=== PATIENT | male | born 1990 | race American Indian/Alaskan Native ===

== ENCOUNTER 2020-02-05 20:24 | Emergency (ER) | payer MEDICAID ==
[~2020-02-05] VITALS: Ht 182.9 cm; Wt 86.4 kg
[~2020-02-05 20:24] MED LIST: BECL8.7A3 IH; CYCL-1 PO; DIAZ5TAB PO; HYDR-4383 PO; IBUP-1985 PO
[2020-02-05 20:49] VITALS: BP 113/72
[2020-02-05] MEDS ORDERED: AZIT250T81 PO (21:12)
[2020-02-05] MEDS ORDERED: PRED20TA PO (21:12)
== END 2020-02-05 21:26 | disposition home or self-care (01) ==
LOC: ER 20:25
DX: J01.00 Acute maxillary sinusitis, unspecified (principal); G89.29 Other chronic pain; J45.909 Unspecified asthma, uncomplicated; Z87.891 Personal history of nicotine dependence; Z56.0 Unemployment, unspecified; Z79.899 Other long term (current) drug therapy
CPT/HCPCS: 99283

== ENCOUNTER 2020-03-27 02:09 | Emergency (ER) | payer MEDICAID ==
[~2020-03-27] VITALS: Ht 182.9 cm; Wt 79.5 kg
[2020-03-27 02:31] VITALS: BP 119/75
== END 2020-03-27 02:33 | disposition home or self-care (01) ==
LOC: ER 02:10
DX: J20.9 Acute bronchitis, unspecified (principal); R07.89 Other chest pain; J45.909 Unspecified asthma, uncomplicated; G89.29 Other chronic pain; F41.9 Anxiety disorder, unspecified; F31.9 Bipolar disorder, unspecified; F17.200 Nicotine dependence, unspecified, uncomplicated; Z72.89 Other problems related to lifestyle; Z56.0 Unemployment, unspecified; Z79.899 Other long term (current) drug therapy
CPT/HCPCS: 93005; 99283

== ENCOUNTER 2020-08-08 22:12 | Emergency (ER) | payer MEDICAID ==
[~2020-08-08] VITALS: Ht 182.9 cm; Wt 79.5 kg
[2020-08-08] MEDS ORDERED: albuterol 2.5 MG/3 ML nebule NEB ONE (22:45)
--- NOTE | 2020-08-08 23:03 | NUR ---
RESP AT BEDSIDE FOR ALBUTERAL TX
[2020-08-08] MEDS ORDERED: ALBU8HFA PO (23:13)
[2020-08-08] MEDS ORDERED: PRED50TA PO (23:13)
[2020-08-09 01:17] VITALS: BP 117/70
== END 2020-08-08 23:45 | disposition home or self-care (01) ==
LOC: ER 22:13
DX: J45.901 Unspecified asthma with (acute) exacerbation (principal); G89.29 Other chronic pain; F41.9 Anxiety disorder, unspecified; F31.9 Bipolar disorder, unspecified; F17.210 Nicotine dependence, cigarettes, uncomplicated; Z56.0 Unemployment, unspecified; Z79.899 Other long term (current) drug therapy
CPT/HCPCS: 71045; 94640; 94760; 99283; 99284

== ENCOUNTER 2020-08-15 21:56 | Emergency (ER) | payer MEDICAID ==
[~2020-08-15] VITALS: Ht 182.9 cm; Wt 79.5 kg
[~2020-08-15 21:56] MED LIST changes: +ALBU8HFA PO; +PRED50TA PO
[2020-08-15 23:11] VITALS: BP 108/68
== END 2020-08-15 23:13 | disposition home or self-care (01) ==
LOC: ER 21:56
DX: J06.9 Acute upper respiratory infection, unspecified (principal); R05 Cough; R11.10 Vomiting, unspecified; R19.7 Diarrhea, unspecified; J45.909 Unspecified asthma, uncomplicated; G89.29 Other chronic pain; F41.9 Anxiety disorder, unspecified; F31.9 Bipolar disorder, unspecified; F17.200 Nicotine dependence, unspecified, uncomplicated; Z72.89 Other problems related to lifestyle; Z56.0 Unemployment, unspecified; Z79.899 Other long term (current) drug therapy
CPT/HCPCS: 36415; 87635; 99283

== ENCOUNTER 2020-11-19 23:03 | Emergency (ER) | payer MEDICAID ==
[~2020-11-19] VITALS: Ht 182.9 cm; Wt 80.0 kg
[~2020-11-19 23:03] MED LIST changes: -ALBU8HFA PO
[2020-11-19 23:15] VITALS: BP 128/89
== END 2020-11-19 23:46 | disposition home or self-care (01) ==
LOC: ER 23:04
DX: R07.89 Other chest pain (principal); R06.02 Shortness of breath; R05 Cough; Z20.828 Contact with and (suspected) exposure to other viral communicable diseases; J45.909 Unspecified asthma, uncomplicated; G89.29 Other chronic pain; F41.9 Anxiety disorder, unspecified; F31.9 Bipolar disorder, unspecified; F17.200 Nicotine dependence, unspecified, uncomplicated; Z72.89 Other problems related to lifestyle; Z56.0 Unemployment, unspecified; Z79.899 Other long term (current) drug therapy
CPT/HCPCS: 36415; 87635; 99281; 99283

== ENCOUNTER 2021-03-20 03:43 | Emergency (ER) | payer MEDICAID ==
[~2021-03-20] VITALS: Ht 182.9 cm; Wt 77.3 kg
[2021-03-20 03:48] VITALS: BP 116/73
[2021-03-20] MEDS ORDERED: cyclobenzaprine 10mg tablet PO ONE (04:50)
[2021-03-20] MEDS ORDERED: oxyCODONE/APAP 10/325mg tablet PO ONE (04:50)
[2021-03-20] MEDS ORDERED: CYCL-1 PO (04:54)
== END 2021-03-20 05:38 | disposition home or self-care (01) ==
LOC: ER 03:44
DX: S39.012A Strain of muscle, fascia and tendon of lower back, initial encounter (principal); G89.29 Other chronic pain; J45.909 Unspecified asthma, uncomplicated; F41.9 Anxiety disorder, unspecified; F31.9 Bipolar disorder, unspecified; F17.200 Nicotine dependence, unspecified, uncomplicated; Z72.89 Other problems related to lifestyle; Z56.0 Unemployment, unspecified; Z79.899 Other long term (current) drug therapy; X58.XXXA Exposure to other specified factors, initial encounter; Y93.89 Activity, other specified; Y92.89 Other specified places as the place of occurrence of the external cause; Y99.8 Other external cause status
CPT/HCPCS: 99283

== ENCOUNTER 2021-04-24 05:37 | Emergency (ER) | payer MEDICAID ==
[~2021-04-24] VITALS: Ht 182.9 cm; Wt 77.2 kg
[2021-04-24 05:40] VITALS: BP 121/80
[2021-04-24] MEDS ORDERED: PANT-47 PO (06:26)
== END 2021-04-24 07:03 | disposition home or self-care (01) ==
LOC: ER 05:37
DX: R07.89 Other chest pain (principal); R55 Syncope and collapse; J45.909 Unspecified asthma, uncomplicated; K21.9 Gastro-esophageal reflux disease without esophagitis; G89.29 Other chronic pain; F41.9 Anxiety disorder, unspecified; F31.9 Bipolar disorder, unspecified; Z72.89 Other problems related to lifestyle; Z56.0 Unemployment, unspecified; Z79.899 Other long term (current) drug therapy
CPT/HCPCS: 93005; 99283

== ENCOUNTER 2021-06-13 21:23 | Emergency (ER) | payer MEDICAID ==
[~2021-06-13] VITALS: Ht 182.9 cm; Wt 77.3 kg
[~2021-06-13 21:23] MED LIST changes: +PANT-47 PO
[2021-06-13 21:27] VITALS: BP 121/86
[2021-06-13] MEDS ORDERED: normal saline 1000ML IV soln IVB ONE (21:30)
[2021-06-13] MEDS ORDERED: ketorolac trometh. 30mg/ml inj. IV ONE (21:35)
[2021-06-13 21:55] LABS: BASOPHILS % (AUTO) 0.4 % (0-1); EOSINOPHILS # (AUTO) 0.1 X10'3 (0-0.9); EOSINOPHILS % (AUTO) 0.8 % (0-6); HEMATOCRIT 42.9 % (42.0-52.0); HEMOGLOBIN 14.8 g/dl (14.0-17.9); LYMPHOCYTES # (AUTO) 3.4 X10'3 (1.1-4.8); LYMPHOCYTES % (AUTO) 41.7 % (21-51); MEAN CORPUSCULAR HEMOGLOBIN 31.6 PG (27.0-31.0); MEAN CORPUSCULAR HGB CONC 34.6 g/dL (33.0-36.5); MEAN CORPUSCULAR VOLUME 91.4 FL (78-98); MEAN PLATELET VOLUME 10.8 FL (7.4-10.4); MONOCYTES # (AUTO) 0.5 X10'3 (0-0.9); MONOCYTES % (AUTO) 6.5 % (2-12); NEUTROPHILS # (AUTO) 4.2 X10'3 (1.8-7.7); NEUTROPHILS % (AUTO) 50.6 % (42-75); PLATELET COUNT 199 X10'3 (140-440); RED BLOOD COUNT 4.69 X10'6 (4.70-6.10); RED CELL DISTRIBUTION WIDTH 12.8 % (11.5-14.5); WHITE BLOOD COUNT 8.3 X10'3 (4.5-11.0)
[2021-06-13 22:16] LABS: ALANINE AMINOTRANSFERASE 20 U/L (12-78); ALBUMIN 4.2 G/DL (3.4-5.0); ALBUMIN/GLOBULIN RATIO 1.3 (1.1-1.5); ALKALINE PHOSPHATASE 76 IU/L (46-116); ANION GAP 10 (8-16); ASPARTATE AMINO TRANSFERASE 12 U/L (10-37); BLOOD UREA NITROGEN 6 MG/DL (7-18); BUN/CREATININE RATIO 6.9 (5.4-32.0); CHLORIDE 106 MMOL/L (99-107); CREATININE 0.87 MG/DL (0.60-1.10); GLUCOSE 81 MG/DL (70-104); LIPASE 67 U/L (73-393); POTASSIUM 3.6 MMOL/L (3.5-5.1); SODIUM 144 MMOL/L (135-145); TOTAL CARBON DIOXIDE 27.8 MMOL/L (24-32); TOTAL PROTEIN 7.4 G/DL (6.4-8.2); eGFR > 90 ML/MIN
[2021-06-13 22:28] LABS: LARGE PLATELETS FEW
[2021-06-13] MEDS ORDERED: ONDA4TAB6 PO (23:35)
[2021-06-14 00:41] LABS: PLATELET ESTIMATE NORMAL
== END 2021-06-13 23:49 | disposition home or self-care (01) ==
LOC: ER 21:24
DX: K22.6 Gastro-esophageal laceration-hemorrhage syndrome (principal); Z20.822 Contact with and (suspected) exposure to COVID-19; R11.10 Vomiting, unspecified; R19.7 Diarrhea, unspecified; J02.9 Acute pharyngitis, unspecified; R05 Cough; R09.89 Other specified symptoms and signs involving the circulatory and respiratory systems; J45.909 Unspecified asthma, uncomplicated; K21.9 Gastro-esophageal reflux disease without esophagitis; G89.29 Other chronic pain; F41.9 Anxiety disorder, unspecified; F31.9 Bipolar disorder, unspecified; Z72.89 Other problems related to lifestyle; Z56.0 Unemployment, unspecified; Z79.899 Other long term (current) drug therapy
CPT/HCPCS: 36415; 71045; 80053; 83690; 85008; 85025; 87635; 96361; 96374; 99284; C9803; J1885; J7030

== ENCOUNTER 2021-06-21 04:08 | Emergency (ER) | payer MEDICAID ==
[~2021-06-21] VITALS: Ht 182.9 cm; Wt 68.3 kg
[~2021-06-21 04:08] MED LIST changes: +ONDA4TAB6 PO
[2021-06-21 04:12] VITALS: BP 111/74
[2021-06-21] MEDS ORDERED: ketorolac trometh. 30mg/ml inj. IM ONE (04:35)
[2021-06-21] MEDS ORDERED: HYDROcodone/acetaminophen 5mg/325mg tablet PO ONE (04:35)
[2021-06-21] MEDS ORDERED: ORPH100T2 PO (04:38)
[2021-06-21] MEDS ORDERED: orphenadrine citrate 60mg/2ml inj. IM ONE (04:40)
== END 2021-06-21 04:49 | disposition home or self-care (01) ==
LOC: ER 04:08
DX: S39.012A Strain of muscle, fascia and tendon of lower back, initial encounter (principal); J45.909 Unspecified asthma, uncomplicated; K21.9 Gastro-esophageal reflux disease without esophagitis; G89.29 Other chronic pain; F41.9 Anxiety disorder, unspecified; F31.9 Bipolar disorder, unspecified; F17.210 Nicotine dependence, cigarettes, uncomplicated; Z98.890 Other specified postprocedural states; Z72.89 Other problems related to lifestyle; Z56.0 Unemployment, unspecified; Z79.899 Other long term (current) drug therapy; X58.XXXA Exposure to other specified factors, initial encounter; Y93.89 Activity, other specified; Y92.89 Other specified places as the place of occurrence of the external cause; Y99.8 Other external cause status
CPT/HCPCS: 96372; 99283; J1885

== ENCOUNTER 2021-07-17 01:39 | Emergency (ER) | payer MEDICAID ==
[~2021-07-17] VITALS: Ht 182.9 cm; Wt 68.2 kg
[~2021-07-17 01:39] MED LIST changes: +ORPH100T2 PO
[2021-07-17 01:51] VITALS: BP 107/70
== END 2021-07-17 05:11 | disposition home or self-care (01) ==
LOC: ER 01:41
DX: B34.9 Viral infection, unspecified (principal); Z20.822 Contact with and (suspected) exposure to COVID-19; R53.1 Weakness; R43.8 Other disturbances of smell and taste; R06.02 Shortness of breath; R19.7 Diarrhea, unspecified; K21.9 Gastro-esophageal reflux disease without esophagitis; G89.29 Other chronic pain; F41.9 Anxiety disorder, unspecified; F31.9 Bipolar disorder, unspecified; J45.909 Unspecified asthma, uncomplicated; Z72.89 Other problems related to lifestyle; Z56.0 Unemployment, unspecified; Z79.899 Other long term (current) drug therapy
CPT/HCPCS: 71045; 87635; 99284; C9803

== ENCOUNTER 2021-07-23 19:04 | Emergency (ER) | payer MEDICAID ==
[~2021-07-23] VITALS: Ht 182.9 cm; Wt 68.6 kg
[2021-07-23 19:17] VITALS: BP 115/69
[2021-07-23] MEDS ORDERED: ondansetron 4mg rapidly disintigrating tab PO ONE (19:40)
[2021-07-23] MEDS ORDERED: ONDA4TAB6 PO (21:08)
== END 2021-07-23 21:34 | disposition home or self-care (01) ==
LOC: ER 19:05
DX: B34.9 Viral infection, unspecified (principal); Z20.822 Contact with and (suspected) exposure to COVID-19; R11.10 Vomiting, unspecified; R43.8 Other disturbances of smell and taste; R11.2 Nausea with vomiting, unspecified; R19.7 Diarrhea, unspecified; R53.83 Other fatigue; J45.909 Unspecified asthma, uncomplicated; K21.9 Gastro-esophageal reflux disease without esophagitis; G89.29 Other chronic pain; F41.9 Anxiety disorder, unspecified; F31.9 Bipolar disorder, unspecified; Z72.89 Other problems related to lifestyle; Z56.0 Unemployment, unspecified; Z79.899 Other long term (current) drug therapy
CPT/HCPCS: 36415; 87502; 87503; 99283; U0003; U0005

== ENCOUNTER 2021-08-19 22:25 | Emergency (ER) | payer MEDICAID ==
[~2021-08-19] VITALS: Ht 182.9 cm; Wt 68.2 kg
[2021-08-19 22:34] VITALS: BP 109/69
[2021-08-19 23:08] LABS: HEMATOCRIT 41.9 % (42.0-52.0); MEAN PLATELET VOLUME 10.9 FL (7.4-10.4); NEUTROPHILS # (AUTO) 2.7 X10'3 (1.8-7.7); WHITE BLOOD COUNT 5.5 X10'3 (4.5-11.0)
[2021-08-19 23:10] LABS: BASOPHILS % (AUTO) 0.2 % (0-1); EOSINOPHILS % (AUTO) 0.6 % (0-6); HEMOGLOBIN 14.5 g/dl (14.0-17.9); LYMPHOCYTES # (AUTO) 2.5 X10'3 (1.1-4.8); LYMPHOCYTES % (AUTO) 44.3 % (21-51); MEAN CORPUSCULAR HEMOGLOBIN 31.3 PG (27.0-31.0); MEAN CORPUSCULAR HGB CONC 34.7 g/dL (33.0-36.5); MEAN CORPUSCULAR VOLUME 90.3 FL (78-98); MONOCYTES # (AUTO) 0.4 X10'3 (0-0.9); MONOCYTES % (AUTO) 6.4 % (2-12); NEUTROPHILS % (AUTO) 48.5 % (42-75); PLATELET COUNT 145 X10'3 (140-440); RED BLOOD COUNT 4.64 X10'6 (4.70-6.10); RED CELL DISTRIBUTION WIDTH 13.2 % (11.5-14.5)
[2021-08-19 23:23] LABS: ALANINE AMINOTRANSFERASE 30 U/L (12-78); ALBUMIN 3.8 G/DL (3.4-5.0); ALBUMIN/GLOBULIN RATIO 1.2 (1.1-1.5); ALKALINE PHOSPHATASE 89 IU/L (46-116); ANION GAP 10 (8-16); ASPARTATE AMINO TRANSFERASE 19 U/L (10-37); BILIRUBIN,TOTAL 0.7 MG/DL (0.1-1.0); BLOOD UREA NITROGEN 5 MG/DL (7-18); BUN/CREATININE RATIO 6.4 (5.4-32.0); CALCIUM 8.7 MG/DL (8.5-10.1); CHLORIDE 110 MMOL/L (99-107); CREATININE 0.78 MG/DL (0.60-1.10); GLUCOSE 84 MG/DL (70-104); LIPASE 73 U/L (73-393); POTASSIUM 3.8 MMOL/L (3.5-5.1); SODIUM 148 MMOL/L (135-145); TOTAL CARBON DIOXIDE 28.2 MMOL/L (24-32); TOTAL PROTEIN 7.1 G/DL (6.4-8.2); eGFR > 90 ML/MIN
[2021-08-19] MEDS ORDERED: ALBU8HFA PO (23:30)
[2021-08-19] MEDS ORDERED: BENZ-16 PO (23:30)
[2021-08-19] MEDS ORDERED: ONDA4TAB6 PO (23:43)
[2021-09-02] MEDS ORDERED: ONDA4TAB6 PO (21:51)
== END 2021-08-19 23:54 | disposition home or self-care (01) ==
LOC: ER 22:26
DX: U07.1 COVID-19 (principal); R05 Cough; J45.909 Unspecified asthma, uncomplicated; G89.29 Other chronic pain; K21.9 Gastro-esophageal reflux disease without esophagitis; Z72.89 Other problems related to lifestyle; Z56.0 Unemployment, unspecified; Z79.899 Other long term (current) drug therapy
CPT/HCPCS: 36415; 80053; 83690; 85025; 87635; 99283; C9803

== ENCOUNTER 2021-10-17 23:41 | Emergency (ER) | payer MEDICAID ==
[~2021-10-17] VITALS: Ht 182.9 cm; Wt 65.0 kg
[2021-10-18] MEDS ORDERED: PRED20TA PO (00:10)
[2021-10-18 00:42] VITALS: BP 118/101
== END 2021-10-18 00:43 | disposition home or self-care (01) ==
LOC: ER 23:41
DX: J40 Bronchitis, not specified as acute or chronic (principal); R07.89 Other chest pain; R05.9 Cough, unspecified; R50.9 Fever, unspecified; R19.7 Diarrhea, unspecified; K21.9 Gastro-esophageal reflux disease without esophagitis; G89.29 Other chronic pain; F41.9 Anxiety disorder, unspecified; F31.9 Bipolar disorder, unspecified; F17.200 Nicotine dependence, unspecified, uncomplicated; Z72.89 Other problems related to lifestyle; Z56.0 Unemployment, unspecified; Z79.899 Other long term (current) drug therapy
CPT/HCPCS: 71045; 99283

== ENCOUNTER 2021-10-30 11:24 | Emergency (ER) | payer MEDICAID ==
[~2021-10-30] VITALS: Ht 182.9 cm; Wt 70.0 kg
[~2021-10-30 11:24] MED LIST changes: +PRED20TA PO
[2021-10-30 11:37] VITALS: BP 106/73
[2021-10-30] MEDS ORDERED: AMOX-422 PO (12:33)
[2021-10-30] MEDS ORDERED: BUDE180A INH (12:33)
== END 2021-10-30 12:45 | disposition home or self-care (01) ==
LOC: ER 11:25
DX: J40 Bronchitis, not specified as acute or chronic (principal); Z20.822 Contact with and (suspected) exposure to COVID-19; R06.02 Shortness of breath; R05.9 Cough, unspecified; K21.9 Gastro-esophageal reflux disease without esophagitis; G89.29 Other chronic pain; F41.9 Anxiety disorder, unspecified; F31.9 Bipolar disorder, unspecified; Z72.89 Other problems related to lifestyle; Z56.0 Unemployment, unspecified; Z79.2 Long term (current) use of antibiotics; Z79.899 Other long term (current) drug therapy
CPT/HCPCS: 36415; 71045; 99284; U0003; U0005

== ENCOUNTER 2021-11-18 20:14 | Emergency (ER) | payer MEDICAID ==
[~2021-11-18] VITALS: Ht 182.9 cm; Wt 70.9 kg
[~2021-11-18 20:14] MED LIST changes: +BUDE180A INH
[2021-11-18] MEDS ORDERED: morphine 4 MG/ML inj SYRINge IM ONE (23:45)
[2021-11-18] MEDS ORDERED: ondansetron 4mg rapidly disintigrating tab PO ONE (23:45)
[2021-11-18] MEDS ORDERED: ketorolac trometh. 30mg/ml inj. IM ONE (23:45)
[2021-11-19 00:40] VITALS: BP 105/64
[2021-11-19] MEDS ORDERED: HYDR-3965 PO (18:11)
[2021-11-19] MEDS ORDERED: ONDA4TAB6 PO (18:11)
== END 2021-11-19 00:41 | disposition home or self-care (01) ==
LOC: ER 20:14
DX: M54.50 Low back pain, unspecified (principal); M54.6 Pain in thoracic spine; R20.0 Anesthesia of skin; J45.909 Unspecified asthma, uncomplicated; K21.9 Gastro-esophageal reflux disease without esophagitis; G89.29 Other chronic pain; Z72.89 Other problems related to lifestyle; Z56.0 Unemployment, unspecified; Z79.899 Other long term (current) drug therapy
CPT/HCPCS: 96372; 99284; J1885; J2270

== ENCOUNTER 2021-11-19 13:55 | Emergency (ER) | payer MEDICAID ==
[~2021-11-19] VITALS: Ht 182.9 cm; Wt 70.9 kg
[2021-11-19 14:02] VITALS: BP 111/77
[2021-11-19] MEDS ORDERED: morphine 4 MG/ML inj SYRINge IM ONE (14:20)
[2021-11-19] MEDS ORDERED: ondansetron 4mg rapidly disintigrating tab PO ONE (14:20)
[2021-11-19] MEDS ORDERED: ondansetron/PF 4mg/2ml inj IV ONE (14:30)
[2021-11-19] MEDS ORDERED: morphine 4 MG/ML inj SYRINge IV ONE (14:35)
[2021-11-19] MEDS ORDERED: ONDA4TAB6 PO (18:11)
[2021-11-19] MEDS ORDERED: HYDR-3965 PO (18:11)
== END 2021-11-19 18:31 | disposition home or self-care (01) ==
LOC: ER 13:56
DX: M54.50 Low back pain, unspecified (principal); R20.0 Anesthesia of skin; J45.909 Unspecified asthma, uncomplicated; K21.9 Gastro-esophageal reflux disease without esophagitis; G89.29 Other chronic pain; Z72.89 Other problems related to lifestyle; Z56.0 Unemployment, unspecified; Z79.899 Other long term (current) drug therapy
CPT/HCPCS: 72148; 96374; 96375; 99284; J2270; J2405

== ENCOUNTER 2021-11-24 22:35 | Emergency (ER) | payer MEDICAID ==
[~2021-11-24] VITALS: Ht 182.9 cm; Wt 70.5 kg
[~2021-11-24 22:35] MED LIST changes: +HYDR-3965 PO; -PRED20TA PO
[2021-11-24 22:53] VITALS: BP 122/75
[2021-11-25] MEDS ORDERED: diazepam 5mg tablet PO ONE (00:35)
[2021-11-25] MEDS ORDERED: HYDROcodone/acetaminophen 5mg/325mg tablet PO ONE ×3 (00:35→01:30)
[2021-11-25] MEDS ORDERED: ketorolac trometh inj. 60 MG/2 ML VIAL IM ONE ×2 (00:40→01:25)
== END 2021-11-25 01:38 | disposition home or self-care (01) ==
LOC: ER 22:36
DX: M54.9 Dorsalgia, unspecified (principal); R20.0 Anesthesia of skin; J45.909 Unspecified asthma, uncomplicated; K21.9 Gastro-esophageal reflux disease without esophagitis; G89.29 Other chronic pain; Z72.89 Other problems related to lifestyle; Z56.0 Unemployment, unspecified; Z79.899 Other long term (current) drug therapy
CPT/HCPCS: 96372; 99284; J1885

== ENCOUNTER 2021-12-08 21:46 | Emergency (ER) | payer MEDICAID ==
[~2021-12-08] VITALS: Ht 182.9 cm; Wt 75.0 kg
[~2021-12-08 21:46] MED LIST changes: -HYDR-3965 PO
[2021-12-08 22:03] VITALS: BP 111/74
[2021-12-09] MEDS ORDERED: HYDR-3965 PO (00:15)
[2021-12-09] MEDS ORDERED: HYDROcodone/acetaminophen 10/325mg tab PO ONE (00:15)
== END 2021-12-09 00:59 | disposition home or self-care (01) ==
LOC: ER 21:47
DX: M54.9 Dorsalgia, unspecified (principal); R15.9 Full incontinence of feces; R20.0 Anesthesia of skin; J45.909 Unspecified asthma, uncomplicated; G89.29 Other chronic pain; K21.9 Gastro-esophageal reflux disease without esophagitis; Z72.89 Other problems related to lifestyle; Z56.0 Unemployment, unspecified; Z79.899 Other long term (current) drug therapy
CPT/HCPCS: 99283

== ENCOUNTER 2022-01-02 20:17 | Emergency (ER) | payer MEDICAID ==
[~2022-01-02 20:17] MED LIST changes: +HYDR-3965 PO
[2022-01-02 21:22] VITALS: BP 120/80
== END 2022-01-03 00:38 | disposition home or self-care (01) ==
LOC: ER 20:18
DX: M54.9 Dorsalgia, unspecified (principal); Z53.21 Procedure and treatment not carried out due to patient leaving prior to being seen by health care provider

== ENCOUNTER 2022-04-08 20:10 | Emergency (ER) | payer MEDICAID ==
[~2022-04-08] VITALS: Ht 182.9 cm; Wt 75.0 kg
[~2022-04-08 20:10] MED LIST changes: -HYDR-3965 PO
[2022-04-08 20:13] VITALS: BP 108/66
--- NOTE | 2022-04-08 22:22 | NUR ---
pt wants to leave
== END 2022-04-08 22:24 | disposition left against medical advice (07) ==
LOC: ER 20:11
DX: M54.9 Dorsalgia, unspecified (principal); Z53.21 Procedure and treatment not carried out due to patient leaving prior to being seen by health care provider

== ENCOUNTER 2022-05-09 20:50 | Emergency (ER) | payer MEDICAID ==
[~2022-05-09] VITALS: Ht 182.9 cm; Wt 74.1 kg
[2022-05-09] MEDS ORDERED: ketorolac trometh. 30mg/ml inj. IV ONE (21:50)
[2022-05-10] MEDS ORDERED: cyclobenzaprine 10mg tablet PO ONE (05:25)
[2022-05-10] MEDS ORDERED: ketorolac trometh. 30mg/ml inj. IM ONE (05:25)
[2022-05-10] MEDS ORDERED: CYCL-1 PO (05:39)
[2022-05-10] MEDS ORDERED: IBUP-1985 PO (05:39)
[2022-05-10 06:14] VITALS: BP 114/84
== END 2022-05-10 06:17 | disposition home or self-care (01) ==
LOC: ER 20:50
DX: M54.50 Low back pain, unspecified (principal); J45.909 Unspecified asthma, uncomplicated; K21.9 Gastro-esophageal reflux disease without esophagitis; F41.9 Anxiety disorder, unspecified; F31.9 Bipolar disorder, unspecified; Z72.89 Other problems related to lifestyle; Z56.0 Unemployment, unspecified; Z79.899 Other long term (current) drug therapy
CPT/HCPCS: 96372; 96374; 99284; J1885

== ENCOUNTER 2022-05-19 17:17 | Inpatient (IN) | payer MEDICAID ==
[~2022-05-19] VITALS: Ht 182.9 cm; Wt 72.7 kg
[2022-05-19 17:51] LABS: BASOPHILS % (AUTO) 0.2 % (0-1); EOSINOPHILS # (AUTO) 0.1 X10'3 (0-0.9); EOSINOPHILS % (AUTO) 0.6 % (0-6); HEMATOCRIT 43.6 % (42.0-52.0); HEMOGLOBIN 14.9 g/dl (14.0-17.9); LYMPHOCYTES # (AUTO) 3.9 X10'3 (1.1-4.8); MEAN CORPUSCULAR HGB CONC 34.3 g/dL (33.0-36.5); MEAN CORPUSCULAR VOLUME 90.4 FL (78-98); MEAN PLATELET VOLUME 10.7 FL (7.4-10.4); NEUTROPHILS # (AUTO) 12.5 X10'3 (1.8-7.7); NEUTROPHILS % (AUTO) 71.2 % (42-75); PLATELET COUNT 203 X10'3 (140-440); RED BLOOD COUNT 4.82 X10'6 (4.70-6.10); WHITE BLOOD COUNT 17.5 X10'3 (4.5-11.0)
[2022-05-19 17:57] LABS: CLARITY,URINE CLEAR (Clear); COLOR,URINE YELLOW (Yellow); GLUCOSE, URINE NEGATIVE (Neg); KETONES,URINE NEGATIVE (Neg); LEUKOCYTE ESTERASE ,URINE NEGATIVE (Neg); NITRITES, URINE NEGATIVE (Neg); OCCULT BLOOD,URINE NEGATIVE (Neg); PH,URINE 7.5 (4.8-8.0); PROTEIN,URINE NEGATIVE (Neg); UROBILINOGEN,URINE 0.2 E.U/dL (0.2-1.0)
[2022-05-19 17:58] LABS: UA COLLECTION TYPE CLN CATCH MIDSTREAM
[2022-05-19 18:06] LABS: ALANINE AMINOTRANSFERASE 47 U/L (12-78); ALBUMIN 4.2 G/DL (3.4-5.0); ALBUMIN/GLOBULIN RATIO 1.3 (1.1-1.5); ALKALINE PHOSPHATASE 84 IU/L (46-116); ANION GAP 10 (8-16); ASPARTATE AMINO TRANSFERASE 19 U/L (10-37); BILIRUBIN,TOTAL 2.5 MG/DL (0.1-1.0); BLOOD UREA NITROGEN 7 MG/DL (7-18); BUN/CREATININE RATIO 7.3 (5.4-32.0); CHLORIDE 106 MMOL/L (99-107); CREATININE 0.96 MG/DL (0.60-1.10); GLUCOSE 101 MG/DL (70-104); LIPASE 70 U/L (73-393); POTASSIUM 3.4 MMOL/L (3.5-5.1); SODIUM 146 MMOL/L (135-145); TOTAL CARBON DIOXIDE 30.1 MMOL/L (24-32); TOTAL PROTEIN 7.4 G/DL (6.4-8.2); eGFR > 90 ML/MIN
--- NOTE | 2022-05-19 18:15 | NUR ---
VERBAL ORDER RECEIVED FROM LETA FRAZIER FOR CT ABD PELVIS WITH NO CONTRAST. ORDER PLACED RECEIVED
[2022-05-19 18:26] LABS: LARGE PLATELETS FEW; PLATELET ESTIMATE NORMAL
[2022-05-19] MEDS ORDERED: normal saline 1000ML IV soln IV ONE (23:45)
[2022-05-19] MEDS ORDERED: piperacillin/tazo 3.375gm/50ml 50 ML IV ONE (23:45)
[2022-05-20] VITALS (8 sets, daily range): BP systolic 99–126; BP diastolic 58–77
[2022-05-20] MEDS ORDERED: magnesium 4gm in 100ml NS 100 ML IV PRN (00:15)
[2022-05-20] MEDS ORDERED: magnesium 2GM in 50ml NS 50 ML IV PRN (00:15)
[2022-05-20] MEDS ORDERED: morphine 2 MG/ML inj. syringe IV PRN ×2 (00:15→13:10)
[2022-05-20] MEDS ORDERED: magnesium hydroxide 30ml (MOM) UD suspension PO PRN (00:15)
[2022-05-20] MEDS ORDERED: HYDROmorphone inj. 0.5 MG/0.5 ML DISP.SYRIN IV PRN (00:15)
[2022-05-20] MEDS ORDERED: magnesium Cl slow-release 64mg tablet PO PRN (00:15)
[2022-05-20] MEDS ORDERED: potassium Cl 20mEq in NS 1,000 ML IV SCH (00:15)
[2022-05-20] MEDS ORDERED: mag hydrox/Alum hydrox/simeth 30ml oral suspension PO PRN (00:15)
[2022-05-20] MEDS ORDERED: HYDROcodone/acetaminophen 5mg/325mg tablet PO PRN (00:15)
[2022-05-20] MEDS ORDERED: acetaminophen 325mg tablet PO PRN ×2 (00:15)
[2022-05-20] MEDS ORDERED: ondansetron 4mg rapidly disintigrating tab PO PRN (00:15)
[2022-05-20] MEDS ORDERED: acetaminophen 650mg rectal suppository RC PRN (00:15)
[2022-05-20] MEDS ORDERED: ondansetron/PF 4mg/2ml inj IV PRN ×2 (00:15→13:10)
[2022-05-20] MEDS ORDERED: bisacodyl 10mg suppository rectal RC PRN (00:15)
[2022-05-20] MEDS ORDERED: diphenhydrAMINE 25mg capsule PO PRN (00:15)
[2022-05-20] MEDS ORDERED: HYDROcodone/acetaminophen 10/325mg tab PO PRN (00:15)
[2022-05-20] MEDS ORDERED: POTASSIUM BICARB 20meq eff tab 20 MEQ TABLET.EFF PO PRN ×2 (00:15)
[2022-05-20] MEDS ORDERED: diphenhydrAMINE 50 mg/ml inj IV PRN (00:15)
[2022-05-20] MEDS: morphine 2 MG/ML inj. syringe IV PRN ×2 (00:34→06:49)
[2022-05-20 00:59] LABS: APTT 31 SECONDS (22-32)
[2022-05-20 01:07] LABS: PHOSPHORUS 3.2 MG/DL (2.3-4.5); POTASSIUM 3.3 MMOL/L (3.5-5.1)
[2022-05-20] MEDS ORDERED: ringers solution, lacted 1,000 ML IV ONE (03:00)
[2022-05-20] MEDS ORDERED: ringers solution, lactated 500ml IV solution IV ONE (04:20)
[2022-05-20] MEDS ORDERED: OMEP20CA16 PO (04:58)
[2022-05-20] MEDS ORDERED: CARI3CAP PO (04:58)
[2022-05-20] MEDS ORDERED: GABA-530 PO (04:58)
[2022-05-20] MEDS ORDERED: QUET50TA24 PO (04:58)
[2022-05-20] MEDS ORDERED: LITH300T3 PO (04:58)
[2022-05-20] MEDS: potassium CL 10mEq/100ml bag 100 ML IV PRN ×4 (06:48→10:23)
--- NOTE | 2022-05-20 06:59 | NUR ---
PAIN 6/10 MORPHINE AND ZOFRAN GIVEN K+ REPLACEMENT #1 OF 4 STARTED.
[2022-05-20] MEDS ORDERED: pantoprazole 40MG/NS 100ML BAG 100 ML IV SCH (08:00)
[2022-05-20] MEDS ORDERED: docusate sod 100mg capsule PO SCH (08:00)
[2022-05-20] MEDS ORDERED: K and/or MAG REPLACEMENT MC SCH (08:00)
[2022-05-20] MEDS ORDERED: nicotine 21mg patch - 24 hr TD SCH (08:00)
[2022-05-20] MEDS ORDERED: piperacillin/tazo 4.5gm/100ml 100 ML IV SCH (08:00)
--- NOTE | 2022-05-20 09:34 | NUR ---
CALLED [facility] FOR ZOSYN THEY WILL GET IT MADE AND SEND IT DOWN
--- NOTE | 2022-05-20 10:35 | NUR ---
DR RIZO AT FOR CONSULT
--- NOTE | 2022-05-20 12:43 | NUR ---
REPORT GIVEN TO JC JOVEL IN RECOVERY ROOM
[2022-05-20] MEDS ORDERED: meperidine/PF 25mg/ml syringe IV PRN ×3 (13:10)
[2022-05-20] MEDS ORDERED: proCHLORperazine 10 MG/2 ml inj IV PRN (13:10)
[2022-05-20] MEDS ORDERED: ringers solution, lacted 1,000 ML IV SCH (13:10)
[2022-05-20] MEDS ORDERED: morphine 4 MG/ML inj SYRINge IV PRN (13:10)
[2022-05-20] MEDS ORDERED: LIDOcaine 1% 30ml preserv. free vial ONE (13:31)
[2022-05-20] MEDS ORDERED: BUPIVAcaine 0.5% inj/PF 30 ML ONE (13:31)
[2022-05-20] MEDS ORDERED: dexamethasone sod phosphate 10mg/ml inj ONE (13:56)
[2022-05-20] MEDS ORDERED: sevoflurane 250ml liquid IH ONE (13:56)
[2022-05-20] MEDS ORDERED: propofol inj 20 ML IV ONE (13:59)
[2022-05-20] MEDS ORDERED: midazolam 1 mg/ML 2ml injection ONE (13:59)
[2022-05-20] MEDS ORDERED: fentaNYL/PF 50MCG/1 ML 2ML syringe ONE (13:59)
[2022-05-20] MEDS ORDERED: BUPIVAcaine 0.5% inj/PF 30 ml vial IJ ONE (14:27)
[2022-05-20] MEDS ORDERED: glycopyrrolate 0.2mg/ml inj ONE (14:43)
[2022-05-20] MEDS ORDERED: neostigmine methylsulfate 1 MG/ML 10ml vial ONE (14:43)
[2022-05-20] MEDS ORDERED: rocuronium 10mg/ml inj IV ONE (14:51)
--- NOTE | 2022-05-20 15:00 | NUR ---
Received from OR via , accompanied by Anesthesiologist and report given by Anesthesiolgist. . PATIENT A&OX4, VSS. .BANDAIDS TO LAP SITES ABDOMEN C/D/I SCD ON,. CAP REFILL WNL. . IV RUNNING LR TO 20 G IV TO RIGHT HAND.
[2022-05-20] MEDS ORDERED: HYDROcodone/acetaminophen 5mg/325mg tablet PO ONE (15:10)
--- NOTE | 2022-05-20 16:10 | NUR ---
PATIENT A&OX4, VSS. .BANDAIDS TO LAP SITES ABDOMEN C/D/I SCD Off,. CAP REFILL WNL. . 20 G IV TO RIGHT HAND d/c. i have reviewed d/c instructions with patient and they have verbalized understanding and received d/c paperwork . patient d/c home with all belongings and family friend gave transport home.
[2022-05-20] MEDS ORDERED: temazepam 15mg capsule PO PRN (21:00)
== END 2022-05-20 16:10 | disposition home or self-care (01) | DRG 234 ==
LOC: ER 17:18 → ED HOLD 05-20 00:18
PROVIDERS: ADMIT Family Medicine; ATTEND Family Medicine
PROC: 8E0W4CZ Robotic Assisted Procedure of Trunk Region, Percutaneous Endoscopic Approach (ICD-10-PCS; 2022-05-20)
PROC: 0DTJ4ZZ Resection of Appendix, Percutaneous Endoscopic Approach (ICD-10-PCS; principal; 2022-05-20 13:56)
DX: K35.30 Acute appendicitis with localized peritonitis, without perforation or gangrene (principal); E86.1 Hypovolemia; E87.6 Hypokalemia; F17.210 Nicotine dependence, cigarettes, uncomplicated; F31.9 Bipolar disorder, unspecified; G89.29 Other chronic pain; M54.50 Low back pain, unspecified; Z20.822 Contact with and (suspected) exposure to COVID-19; J45.909 Unspecified asthma, uncomplicated; K21.9 Gastro-esophageal reflux disease without esophagitis; Z56.0 Unemployment, unspecified; Z79.899 Other long term (current) drug therapy
CPT/HCPCS: 36415; 74176; 80053; 81003; 83690; 83735; 83880; 84100; 84132; 85008; 85025; 85610; 85730; 87635; 96374; 99285; A4215; A4618; C9113; G0378; J1100; J2250; J2270; J2405; J2543; J2704; J2710; J3010; J3480; J3490; J7030; J7120; S0020

== ENCOUNTER 2022-10-23 20:22 | Emergency (ER) | payer MEDICAID ==
[~2022-10-23] VITALS: Ht 182.9 cm; Wt 70.4 kg
[~2022-10-23 20:22] MED LIST changes: -BECL8.7A3 IH; -BUDE180A INH; +CARI3CAP PO; -CYCL-1 PO; -DIAZ5TAB PO; +GABA-530 PO; -HYDR-4383 PO; -IBUP-1985 PO; +LITH300T3 PO; +OMEP20CA16 PO; -ONDA4TAB6 PO; -ORPH100T2 PO; -PANT-47 PO; -PRED50TA PO; +QUET50TA24 PO
[2022-10-23] MEDS ORDERED: HYDR-3965 PO (22:53)
[2022-10-23] MEDS ORDERED: AMOX-117 PO (22:53)
[2022-10-23] MEDS ORDERED: IBUP-1984 PO (22:53)
[2022-10-23 23:06] VITALS: BP 128/76
== END 2022-10-23 23:08 | disposition home or self-care (01) ==
LOC: ER 20:22
DX: K08.89 Other specified disorders of teeth and supporting structures (principal); J45.909 Unspecified asthma, uncomplicated; K21.9 Gastro-esophageal reflux disease without esophagitis; G89.29 Other chronic pain; F41.9 Anxiety disorder, unspecified; F31.9 Bipolar disorder, unspecified; Z72.89 Other problems related to lifestyle; Z56.0 Unemployment, unspecified; Z79.2 Long term (current) use of antibiotics; Z79.899 Other long term (current) drug therapy
CPT/HCPCS: 99283

== ENCOUNTER 2023-09-14 21:07 | Emergency (ER) | payer MEDICAID ==
[~2023-09-14] VITALS: Ht 182.9 cm; Wt 70.0 kg
[2023-09-14 21:10] VITALS: BP 118/74; PULSE 83; TEMP 98.4; O2SAT 99
[2023-09-14] MEDS ORDERED: ketorolac trometh. 30mg/ml inj. IV ONE (23:10)
[2023-09-14] MEDS ORDERED: HYDROcodone/acetaminophen 5mg/325mg tablet PO ONE (23:10)
[2023-09-14] MEDS ORDERED: ondansetron 4mg rapidly disintigrating tab PO ONE (23:10)
[2023-09-14 23:46] LABS: BASOPHILS % (AUTO) 0.2 % (0-1); EOSINOPHILS # (AUTO) 0.2 X10'3 (0-0.9); HEMATOCRIT 41.1 % (42.0-52.0); HEMOGLOBIN 13.9 g/dl (14.0-17.9); LYMPHOCYTES % (AUTO) 16.7 % (21-51); MEAN CORPUSCULAR HEMOGLOBIN 31.3 PG (27.0-31.0); MEAN CORPUSCULAR HGB CONC 33.7 g/dL (33.0-36.5); MEAN CORPUSCULAR VOLUME 92.6 FL (78-98); MEAN PLATELET VOLUME 11.7 FL (7.4-10.4); MONOCYTES # (AUTO) 1.2 X10'3 (0-0.9); MONOCYTES % (AUTO) 6.4 % (2-12); NEUTROPHILS # (AUTO) 13.7 X10'3 (1.8-7.7); NEUTROPHILS % (AUTO) 75.7 % (42-75); PLATELET COUNT 181 X10'3 (140-440); RED BLOOD COUNT 4.44 X10'6 (4.70-6.10); RED CELL DISTRIBUTION WIDTH 13.4 % (11.5-14.5); WHITE BLOOD COUNT 18.1 X10'3 (4.5-11.0)
--- NOTE | 2023-09-14 23:53 | NUR ---
IVP TORADOL GIVEN BY RN
[2023-09-15 00:05] LABS: ALANINE AMINOTRANSFERASE 22 U/L (12-78); ALBUMIN 3.8 G/DL (3.4-5.0); ALBUMIN/GLOBULIN RATIO 1.1 (1.1-1.5); ALKALINE PHOSPHATASE 90 IU/L (46-116); ANION GAP 3 (8-16); ASPARTATE AMINO TRANSFERASE 21 U/L (10-37); BILIRUBIN,TOTAL 0.9 MG/DL (0.1-1.0); BLOOD UREA NITROGEN 8 MG/DL (7-18); BUN/CREATININE RATIO 8.9 (10.0-20.0); CALCIUM 9.5 MG/DL (8.5-10.1); CHLORIDE 105 MMOL/L (99-107); GLUCOSE 111 MG/DL (70-104); POTASSIUM 3.7 MMOL/L (3.5-5.1); SODIUM 139 MMOL/L (135-145); TOTAL CARBON DIOXIDE 30.8 MMOL/L (24-32); TOTAL PROTEIN 7.2 G/DL (6.4-8.2); eCRCL 115 ML/MIN; eGFR > 90 ML/MIN
[2023-09-15 00:42] VITALS: RESP 16
[2023-09-15] MEDS ORDERED: iohexol 300mg/ml 100ml inj. ONE (00:53)
[2023-09-15 01:03] LABS: PLATELET ESTIMATE NORMAL
[2023-09-15 01:04] LABS: LARGE PLATELETS FEW
[2023-09-15 01:09] LABS: BILIRUBIN,URINE NEGATIVE (Neg); CLARITY,URINE CLOUDY (Clear); COLOR,URINE YELLOW (Yellow); GLUCOSE, URINE NEGATIVE (Neg); KETONES,URINE NEGATIVE (Neg); LEUKOCYTE ESTERASE ,URINE NEGATIVE (Neg); NITRITES, URINE NEGATIVE (Neg); OCCULT BLOOD,URINE NEGATIVE (Neg); PROTEIN,URINE NEGATIVE (Neg)
[2023-09-15 01:18] LABS: UA COLLECTION TYPE NON-SPECIFIED
[2023-09-15 01:20] LABS: AMORPHOUS PHOSPHATES 4+; BACTERIA,URINE FEW /HPF (Neg); MUCUS STRANDS MANY /LPF (Neg); RBC,URINE 0-2 /HPF (0-2); SQUAMOUS EPITHELIAL CELL,UR FEW /LPF (FEW); WBC,URINE 0-4 /HPF (0-4)
[2023-09-15 01:21] LABS: TRANSITIONAL EPI CELLS,URINE FEW /HPF
[2023-09-15 01:23] LABS: HYALINE CASTS 0-3 /LPF (NEGATIVE)
[2023-09-15] MEDS ORDERED: HYDR-3965 PO (01:51)
--- NOTE | 2023-09-15 01:55 | NUR ---
IV DC'D PT BEING DISCHARGED DRESSING APPLIED
== END 2023-09-15 01:56 | disposition home or self-care (01) ==
LOC: ER 21:08
DX: M54.50 Low back pain, unspecified (principal); J45.909 Unspecified asthma, uncomplicated; G89.29 Other chronic pain; Z72.89 Other problems related to lifestyle; Z56.0 Unemployment, unspecified; Z79.899 Other long term (current) drug therapy
CPT/HCPCS: 36415; 72132; 80053; 81001; 85008; 85025; 96374; 99285; J1885; J3490; Q9967

== ENCOUNTER 2023-10-10 14:43 | Emergency (ER) | payer MEDICAID ==
[~2023-10-10] VITALS: Ht 182.9 cm; Wt 69.1 kg
[~2023-10-10 14:43] MED LIST changes: +HYDR-3965 PO
[2023-10-10 14:57] VITALS: BP 108/72; PULSE 70; TEMP 98.9; O2SAT 100
[2023-10-10] MEDS ORDERED: ketorolac trometh inj. 60 MG/2 ML VIAL IM ONE (15:00)
[2023-10-10] MEDS ORDERED: diazepam inj 5 MG/ML inj. IM ONE (15:00)
[2023-10-10] MEDS ORDERED: NAPR-56 PO (15:04)
[2023-10-10] MEDS ORDERED: CYCL-1 PO (15:04)
[2023-10-10 15:29] VITALS: RESP 18
== END 2023-10-10 15:44 | disposition home or self-care (01) ==
LOC: ER 14:44
DX: M54.16 Radiculopathy, lumbar region (principal); J45.909 Unspecified asthma, uncomplicated; G89.29 Other chronic pain; Z72.89 Other problems related to lifestyle; Z56.0 Unemployment, unspecified; Z79.899 Other long term (current) drug therapy
CPT/HCPCS: 96372; 99284; J1885; J3360

== ENCOUNTER 2023-10-23 17:03 | Emergency (ER) | payer MEDICAID ==
[~2023-10-23] VITALS: Ht 182.9 cm; Wt 70.6 kg
[~2023-10-23 17:03] MED LIST changes: +CYCL-1 PO; -HYDR-3965 PO; +NAPR-56 PO
[2023-10-23 17:11] VITALS: TEMP 99.9
[2023-10-23 19:15] VITALS: BP 110/72; PULSE 84; RESP 16; O2SAT 97
--- NOTE | 2023-10-23 22:01 | NUR ---
I have reviewed and agree with assessment by Salina CAO.
== END 2023-10-23 22:01 | disposition left against medical advice (07) ==
LOC: ER 17:04
DX: R20.0 Anesthesia of skin (principal); J44.9 Chronic obstructive pulmonary disease, unspecified; G89.29 Other chronic pain; M54.9 Dorsalgia, unspecified; F31.9 Bipolar disorder, unspecified; K21.9 Gastro-esophageal reflux disease without esophagitis; Z79.899 Other long term (current) drug therapy; Z79.1 Long term (current) use of non-steroidal anti-inflammatories (NSAID)
CPT/HCPCS: 99284

== ENCOUNTER 2023-11-15 12:35 | Emergency (ER) | payer MEDICAID ==
[~2023-11-15] VITALS: Ht 182.9 cm; Wt 69.8 kg
[~2023-11-15 12:35] MED LIST changes: -NAPR-56 PO
[2023-11-15 13:36] VITALS: BP 119/78; PULSE 90; RESP 20; TEMP 98.2; O2SAT 100
== END 2023-11-15 14:12 | disposition home or self-care (01) ==
LOC: ER 12:36
DX: U07.1 COVID-19 (principal)
CPT/HCPCS: 99281